=== PATIENT | female | born 1990 | race Caucasian/White ===

== ENCOUNTER → 2016-05-31 | Outpatient (CLI) | payer OTHER ==
--- NOTE | 2016-05-31 07:51 | US ---
EXAMINATION TYPE: US gallbladder DATE OF EXAM: 05/31/2016 7:37 AM COMPARISON: NONE CLINICAL HISTORY: 25-year-old female R14.0 Abdominal distension (gaseous). Abdominal bloating and dis comfort. TECHNIQUE: Multiple sonographic images of the right upper quadrant are obtained. FINDINGS: Liver Length: 13.8 cm Gallbladder Wall: 0.1 cm CBD: 0.4 cm Right Kidney: 9.2 x 3.8 x 4.8 cm Pancreas: Grossly unremarkable. Liver: Normal homogeneous echotexture without focal lesion. Gallbladder: No abnormal gallbladder distention, wall thickening, pericholecystic fluid, or shadowin g calculi. Evidence for sonographic Kaplan's sign: No CBD: Within normal limits. Right Kidney: No hydronephrosis. IMPRESSION: Unremarkable sonographic examination of the right upper quadrant.
== END | disposition home or self-care (01) ==
LOC: RADUSWWP 07:25
PROVIDERS: ATTEND Family Medicine
DX: R14.0 Abdominal distension (gaseous) (principal)
CPT/HCPCS: 76705

== ENCOUNTER 2016-07-27 13:04 | Emergency (ER) | payer OTHER ==
[2016-07-27 13:23] VITALS: BP 107/59; PULSE 94; RESP 18; TEMP 97.1
[2016-07-27] MEDS ORDERED: KETOROLAC 60 MG/2 ML VIAL IM STA (13:28)
[2016-07-27] MEDS ORDERED: diphenhydrAMINE 50 MG CAP PO STA (13:28)
[2016-07-27] MEDS ORDERED: METOCLOPRAMIDE 10 MG TAB PO STA (13:31)
--- NOTE | 2016-07-27 13:48 | ED ---
Headache HPI - General Chief Complaint: Headache Stated Complaint: migraine Time Seen by Provider: 07/27/16 13:24 Source: patient, RN notes reviewed Mode of arrival: ambulatory Limitations: no limitations - History of Present Illness Initial Comments: 25-year-old female presents emergency Department with chief complaint of headache. Patient states started on Sunday with some congestion. She does have seasonal ALLERGY has been taken Claritin for this. Patient denies any nausea, vomiting diarrhea constipation. Denies fever, chills, neck pain or neck stiffness. Patient states that she took some Motrin other day with no relief. She did take Aleve yesterday with with relief of her symptoms with states her return. Patient complains of pressure feeling in her face with diffuse headache. Denies any focal weakness, paresthesias. She states she's never had a headache of this type but states it is not the worse. - Related Data Home Medications Medication Instructions Recorded Confirmed Ibuprofen [Motrin] 200 mg PO Q6HR PRN 07/27/16 07/27/16 Loratadine [Claritin] 10 mg PO DAILY 07/27/16 07/27/16 Naproxen Sodium [Aleve] 220 mg PO DAILY PRN 07/27/16 07/27/16 Previous Rx's Medication Instructions Recorded Ketorolac [Toradol] 10 mg PO Q8HR #15 tab 07/27/16 Allergies Allergy/AdvReac Type Severity Reaction Status Date / Time escitalopram [From Lexapro] AdvReac Rapid Verified 07/27/16 13:52 Heart Rate gluten AdvReac Unknown Verified 07/27/16 13:52 Review of Systems ROS Statement: Those systems with pertinent positive or pertinent negative responses have been documented in the HPI. ROS Other: All systems not noted in ROS Statement are negative. Past Medical History Past Medical History: No Reported History History of Any Multi-Drug Resistant Organisms: None Reported Past Surgical History: Adenoidectomy, Tonsillectomy Additional Past Surgical History / Comment(s): D AND C, THUMB Past Psychological History: No Psychological Hx Reported Smoking Status: Never smoker Past Alcohol Use History: Rare Past Drug Use History: None Reported General Exam Limitations: no limitations General appearance: alert, in no apparent distress Head exam: Present: atraumatic, normocephalic, normal inspection Eye exam: Present: normal appearance, PERRL, EOMI. Absent: scleral icterus, conjunctival injection, periorbital swelling ENT exam: Present: normal exam, normal oropharynx, mucous membranes moist, TM's normal bilaterally, normal external ear exam Neck exam: Present: normal inspection, full ROM. Absent: tenderness, meningismus, lymphadenopathy Respiratory exam: Present: normal lung sounds bilaterally. Absent: respiratory distress, wheezes, rales, rhonchi, stridor Cardiovascular Exam: Present: regular rate, normal rhythm, normal heart sounds. Absent: systolic murmur, diastolic murmur, rubs, gallop, clicks GI/Abdominal exam: Present: soft, normal bowel sounds. Absent: distended, tenderness, guarding, rebound, rigid Neurological exam: Present: alert, oriented X3, CN II-XII intact, reflexes normal, other (Finger to nose intact bilaterally without shooting). Absent: motor sensory deficit Skin exam: Present: warm, dry, intact, normal color. Absent: rash Course Vital Signs 07/27/16 13:20 Temperature 97.1 F L Pulse Rate 94 Respiratory 18 Rate Blood Pressure 107/59 O2 Sat by Pulse 99 Oximetry Medical Decision Making - Medical Decision Making 35-year-old female presented emergency from for headache. Patient's headache has resolved after medications. Patient be discharged at this time return parameters were discussed. Patient has no neurological deficits. Disposition Clinical Impression: Headache Disposition: HOME SELF-CARE Condition: Stable Instructions: Acute Headache (ED) Additional Instructions: Please return to the Emergency Department if symptoms worsen or any other concerns. Prescriptions: Ketorolac [Toradol] 10 mg PO Q8HR #15 tab Time of Disposition: 14:02
== END 2016-07-27 14:00 | disposition home or self-care (01) ==
LOC: EC 13:04
DX: R51 Headache (principal); Z79.899 Other long term (current) drug therapy; Z88.8 Allergy status to other drugs, medicaments and biological substances
CPT/HCPCS: 99283; 96372; J1885

== ENCOUNTER → 2017-07-16 | Outpatient (CLI) | payer OTHER ==
--- NOTE | 2017-07-16 10:12 | MM ---
Reason for exam: clinical finding. Baseline mammogram. History: Family history of breast cancer in paternal grandmother at age 60. Indicated problem(s): pain in the right breast. Physical Findings: Nurse did not find any significant physical abnormalities on exam. MG Diagnostic Mammo w CAD CARLOS Bilateral CC and MLO view(s) were taken. The breast tissue is extremely dense which could obscure a lesion on mammography. There is no discrete abnormality. Very dense tissue. These results were verbally communicated with the patient and result sheet given to the patient on 07/16/17. ASSESSMENT: Incomplete: need additional imaging evaluation, BI-RAD 0 RECOMMENDATION: Ultrasound of the right breast. (at the previously palpable site)
--- NOTE | 2017-07-16 10:26 | USB ---
Reason for exam: additional evaluation requested from abnormal screening. History: Family history of breast cancer in paternal grandmother at age 60. US Breast Limited RT Right breast ultrasound demonstrates no cystic or solid lesion seen. Scanned 6-10 o'clock. Dense tissues are seen. These results were verbally communicated with the patient and result sheet given to the patient on 07/16/17. ASSESSMENT: Negative, BI-RAD 1 RECOMMENDATION: Routine screening mammogram of both breasts at age 38. (unless clinical indication to start sooner) Manage on a clinical basis with regard to any suspicious palpable abnormality. If the palpable area recurs, the area can be rescanned.
== END | disposition home or self-care (01) ==
LOC: RADMAMWWP 08:10
PROVIDERS: ATTEND Family Medicine
DX: N64.4 Mastodynia (principal); N63.10 Unspecified lump in the right breast, unspecified quadrant; R92.8 Other abnormal and inconclusive findings on diagnostic imaging of breast
CPT/HCPCS: 77066

== ENCOUNTER 2017-08-26 15:34 | Emergency (ER) | payer OTHER ==
[2017-08-26 15:46] VITALS: TEMP 97.8
[2017-08-26] MEDS ORDERED: DIPH,PERTUS(ACELL)TETVAC-LF 0.5 ML VIAL IM ONE (16:35)
--- NOTE | 2017-08-26 16:45 | XR ---
EXAMINATION TYPE: XR ankle complete RT DATE OF EXAM: 08/26/2017 COMPARISON: NONE HISTORY: Pain TECHNIQUE: Three-view right ankle FINDINGS: Ankle mortise is intact. Soft tissues are normal. No acute fractures or dislocations are ev ident. IMPRESSION: 1. Normal three-view right ankle
--- NOTE | 2017-08-26 16:51 | ED ---
General Adult HPI - General Chief complaint: Extremity Injury, Lower Stated complaint: ANKLE INJURY Time Seen by Provider: 08/26/17 15:52 Source: patient, RN notes reviewed Mode of arrival: ambulatory Limitations: no limitations - History of Present Illness Initial comments: 26-year-old female since to the emergency department for a chief complaint of right ankle pain times 4 days. Patient states her dog's chain slid across her ankle causing an abrasion 5 days ago. She states it is painful when she keeps her foot dependent. It is not painful at the time of exam when she has it propped up in the bed. Patient is concerned for infection. Patient did not fall or hit her head. Patient did not sustain any other injuries. No fevers or chills at home. Patient has no other complaints at this time including shortness of breath, chest pain, abdominal pain, nausea or vomiting, headache, or visual changes. - Related Data Home Medications Medication Instructions Recorded Confirmed Ibuprofen [Motrin] 200 mg PO Q6HR PRN 07/27/16 08/26/17 Loratadine [Claritin] 10 mg PO DAILY 07/27/16 08/26/17 Naproxen Sodium [Aleve] 220 mg PO DAILY PRN 07/27/16 08/26/17 Previous Rx's Medication Instructions Recorded Ketorolac [Toradol] 10 mg PO Q8HR #15 tab 07/27/16 Cephalexin [Keflex] 500 mg PO Q12HR #14 cap 08/26/17 Allergies Allergy/AdvReac Type Severity Reaction Status Date / Time escitalopram [From Lexapro] AdvReac Rapid Verified 08/26/17 15:46 Heart Rate gluten AdvReac Unknown Verified 08/26/17 15:46 Review of Systems ROS Statement: Those systems with pertinent positive or pertinent negative responses have been documented in the HPI. ROS Other: All systems not noted in ROS Statement are negative. Past Medical History Past Medical History: No Reported History History of Any Multi-Drug Resistant Organisms: None Reported Past Surgical History: Adenoidectomy, Tonsillectomy Additional Past Surgical History / Comment(s): D AND C, AVIS Past Psychological History: Anxiety Smoking Status: Never smoker Past Alcohol Use History: Occasional Past Drug Use History: None Reported General Exam Limitations: no limitations General appearance: alert, in no apparent distress Respiratory exam: Present: normal lung sounds bilaterally. Absent: respiratory distress, wheezes, rales, rhonchi, stridor Cardiovascular Exam: Present: regular rate, normal rhythm, normal heart sounds. Absent: systolic murmur, diastolic murmur, rubs, gallop, clicks Extremities exam: Present: full ROM (Full range of motion of the right ankle including flexion and extension and medial and lateral deviation.), tenderness ( Tenderness to the abrasion. No tenderness on the medial or lateral malleolus. No tenderness in the rest of the foot.), normal capillary refill (Refill less than 2 seconds and pedal pulse 2+.), other (Sensation intact in the left lower extremity. There is a abrasion on the lateral posterior right ankle. It is 0.5 cm in width and extends group home around the ankle. Again, no signs of infection.). Absent: joint swelling (No swelling noted in the ankle or foot. No swelling noted around the abrasion. There are no cellulitic changes or spreading redness. No drainage from the abrasion. No signs of infection currently.), calf tenderness (No calf tenderness. No increased redness swelling or warmth in the right calf.) Course Vital Signs 08/26/17 15:44 Temperature 97.8 F Pulse Rate 90 Respiratory 18 Rate Blood Pressure 121/70 O2 Sat by Pulse 98 Oximetry Medical Decision Making - Medical Decision Making 26-year-old female presents to the emergency department for chief complaint of right ankle pain 4 days. Patient states the dog chain scraped across her ankle. Patient does not think she is up-to-date on tetanus. Patient states it is painful when it is dependent. Patient can walk on it. On exam there is a 0.5 cm in width laceration extending from the lateral ankle to the posterior ankle. No signs of infection. No spreading redness or cellulitic changes. No drainage from the area. It appears like it is healing. No pain in the calf. Patient is concerned for infection. X-ray of the right ankle shows no acute fractures or dislocations evident. Patient will be given Keflex to prevent any infection. She was given a tetanus shot in the emergency department. She will follow-up with primary care in 1-2 days. If she notices any worsening symptoms or signs of infection she will return to the emergency department. Disposition Clinical Impression: Ankle abrasion Disposition: HOME SELF-CARE Condition: Good Instructions: Abrasion (ED) Additional Instructions: Please take antibiotic as directed. Please monitor for any worsening signs of infection. Return to the emergency Department if these occur. Otherwise follow -up with primary care in 1-2 days. Prescriptions: Cephalexin [Keflex] 500 mg PO Q12HR #14 cap Is patient prescribed a controlled substance at d/c from ED?: No Referrals: Alecia Ace DO [Primary Care Provider] - 1-2 days Time of Disposition: 16:58
[2017-08-26 17:12] VITALS: BP 120/71; PULSE 78; RESP 16
== END 2017-08-26 17:10 | disposition home or self-care (01) ==
LOC: EC 15:34
DX: S90.512A Abrasion, left ankle, initial encounter (principal); Z23 Encounter for immunization; Z79.899 Other long term (current) drug therapy; Z88.8 Allergy status to other drugs, medicaments and biological substances; Z91.048 Other nonmedicinal substance allergy status; W22.8XXA Striking against or struck by other objects, initial encounter
CPT/HCPCS: 90471; 90715; 99283

== ENCOUNTER → 2018-10-01 | Outpatient (CLI) | payer BC ==
--- NOTE | 2018-10-01 14:49 | MM ---
Reason for exam: clinical finding. Last mammogram was performed 1 year and 3 months ago. History: Family history of breast cancer in paternal grandmother at age 60. Physical Findings: Nurse Summary: 1cm nodule in the left breast at 12-1 o'clock (nurse kp). MG Diagnostic Mammo LT w CAD CC and MLO view(s) were taken of the left breast. Prior study comparison: July 16, 2017, bilateral MG diagnostic mammo w CAD CARLOS. The breast tissue is extremely dense which could obscure a lesion on mammography. These results were verbally communicated with the patient and result sheet given to the patient on 10/01/18. ASSESSMENT: Incomplete: need additional imaging evaluation, BI-RAD 0 RECOMMENDATION: Ultrasound of the left breast.
--- NOTE | 2018-10-01 14:50 | USB ---
Reason for exam: additional evaluation requested from abnormal screening. History: Family history of breast cancer in paternal grandmother at age 60. US Breast Limited LT Left limited breast ultrasound including focal area of concern, retroareolar and axilla demonstrates a 1.0 x 0.7 x 0.8cm cystic cluster at the posterior nipple. These results were verbally communicated with the patient and result sheet given to the patient on 10/01/18. ASSESSMENT: Probably benign, BI-RAD 3 RECOMMENDATION: Ultrasound of the left breast in 6 months.
== END | disposition home or self-care (01) ==
LOC: RADMAMWWP 13:40
PROVIDERS: ATTEND Family Medicine
DX: N63.20 Unspecified lump in the left breast, unspecified quadrant (principal); R92.8 Other abnormal and inconclusive findings on diagnostic imaging of breast
CPT/HCPCS: 77065

== ENCOUNTER 2018-12-30 12:08 | Emergency (ER) | payer BC, OTHER ==
[2018-12-30] MEDS ORDERED: LORazepam 1 MG TAB PO STA (12:39)
--- NOTE | 2018-12-30 12:41 | ED ---
General Adult HPI - General Chief complaint: Psychiatric Symptoms Stated complaint: anxiety Time Seen by Provider: 12/30/18 12:25 Source: patient, RN notes reviewed Mode of arrival: ambulatory Limitations: no limitations - History of Present Illness Initial comments: This is a 28-year-old female who presents emergency Department with a past medical history significant for anxiety and panic attacks. Patient states while at work eating lunch she started to have a bit of a panic attack and felt her heart racing and thought it was difficult to breathe. Patient states normally she'll work and walk home and that can sometimes relieve her symptoms. Patient states she did that but she continued to be very panicky so she try to get to her doctor's office they were unable to see her so she came to the emergency department. Patient denies any chest pain. Patient denies any fever chills or cough. Patient states since being in the ER she does feel little better but she still feels slightly on edge. Patient denies any headache patient denies numbness weakness. Patient denies nausea vomiting diarrhea. Patient denies any injury or trauma. Patient states she's had a tubal ligation so she is not . Patient denies any drug use. Patient states she did have 2 glasses of wine last evening. - Related Data Previous Rx's Medication Instructions Recorded LORazepam [Ativan] 1 mg PO BID 3 Days #3 tab 12/30/18 Allergies Allergy/AdvReac Type Severity Reaction Status Date / Time escitalopram [From Lexapro] AdvReac Rapid Verified 12/30/18 13:00 Heart Rate gluten AdvReac bloating Verified 12/30/18 13:00 Review of Systems ROS Statement: Those systems with pertinent positive or pertinent negative responses have been documented in the HPI. ROS Other: All systems not noted in ROS Statement are negative. Past Medical History Past Medical History: No Reported History History of Any Multi-Drug Resistant Organisms: None Reported Past Surgical History: Adenoidectomy, Tonsillectomy Additional Past Surgical History / Comment(s): D AND C, THUMB Past Psychological History: Anxiety Smoking Status: Never smoker Past Alcohol Use History: Occasional Past Drug Use History: None Reported General Exam - General Exam Comments Initial Comments: GENERAL: Patient is well-developed and well-nourished. Patient is nontoxic and well- hydrated and is in mild distress. ENT: Neck is soft and supple. No significant lymphadenopathy is noted. Oropharynx is clear. Moist mucous membranes. Neck has full range of motion without eliciting any pain. EYES: The sclera were anicteric and conjunctiva were pink and moist. Extraocular movements were intact and pupils were equal round and reactive to light. Eyel ids were unremarkable. PULMONARY: Unlabored respirations. Good breath sounds bilaterally. No audible rales rhonchi or wheezing was noted. CARDIOVASCULAR: There is a regular rate and rhythm without any murmurs gallops or rubs. ABDOMEN: Soft and nontender with normal bowel sounds. SKIN: Skin is clear with no lesions or rashes and otherwise unremarkable. NEUROLOGIC: Patient is alert and oriented x3. Cranial nerves II through XII are grossly intact. Motor and sensory are also intact. Normal speech, volume and content. Symmetrical smile. MUSCULOSKELETAL: Normal extremities with adequate strength and full range of motion. No lower extremity swelling or edema. No calf tenderness. LYMPHATICS: No significant lymphadenopathy is noted PSYCHIATRIC: Patient is mildly anxious. Limitations: no limitations Course Vital Signs 12/30/18 12:24 Temperature 98.7 F Pulse Rate 91 Respiratory 16 Rate Blood Pressure 122/68 O2 Sat by Pulse 100 Oximetry Medical Decision Making - Medical Decision Making I will back into reevaluate the patient after Ativan was given. Patient states she feels considerably better. EKG shows normal sinus rhythm 87 bpm VA interval is on a 46 QRS is 90 QT interval 360 QTC is 442 per patient's EKG shows no ST segment elevation or depression no T-wave abnormalities are noted. Disposition Clinical Impression: Acute anxiety Disposition: HOME SELF-CARE Condition: Good Prescriptions: LORazepam [Ativan] 1 mg PO BID 3 Days #3 tab Is patient prescribed a controlled substance at d/c from ED?: Yes When asked, does pt state using other controlled substances?: No If prescribed controlled substance>3 days was MAPS reviewed?: Prescribed <3 Days Referrals: Alecia Ace DO [Primary Care Provider] - 1-2 days Time of Disposition: 13:56
[2018-12-30 14:12] VITALS: BP 124/78; PULSE 90; RESP 18; TEMP 98
== END 2018-12-30 14:12 | disposition home or self-care (01) ==
LOC: EC 12:08
DX: F41.9 Anxiety disorder, unspecified (principal); Z88.8 Allergy status to other drugs, medicaments and biological substances; Z91.018 Allergy to other foods
CPT/HCPCS: 93005; 99283

== ENCOUNTER → 2019-03-20 | Outpatient (CLI) | payer BC ==
--- NOTE | 2019-03-20 11:05 | USB ---
Reason for exam: follow-up at short interval from prior study. History: Family history of breast cancer in paternal grandmother at age 60. Physical Findings: Nurse Summary: Patient complains of left breast lump since September with intermittent pain, nodular cystic cluster (nurse mj). US Breast Limited LT Technologist: Ioana Jurado Left limited breast ultrasound including focal area of concern, retroareolar and axilla demonstrates a 0.5 x 0.3 x 0.3cm cystic lesion at 6 o'clock, prior 1.0 x 0.7 x 0.8cm, now smaller in size and less complicated. These results were verbally communicated with the patient and result sheet given to the patient on 03/20/19. ASSESSMENT: Benign, BI-RAD 2 RECOMMENDATION: Routine screening mammogram of both breasts at age 38. (or sooner if clinically indicated)
== END | disposition home or self-care (01) ==
LOC: RADUSWWP 06:58
PROVIDERS: ATTEND Family Medicine
DX: R92.8 Other abnormal and inconclusive findings on diagnostic imaging of breast (principal)

== ENCOUNTER 2019-04-24 09:09 | Emergency (ER) | payer BC ==
[2019-04-24 09:13] VITALS: RESP 20; TEMP 98.7
[2019-04-24] MEDS ORDERED: IOPAMIDOL CONTRAST (ORAL USE) VIAL PO PRN (09:59)
[2019-04-24] MEDS ORDERED: ONDANSETRON 4 MG/2 ML VIAL IVP STA (10:00)
[2019-04-24 10:19] LABS: Basophils % (A) 1 %; Eosinophils # (A) 0.1 k/uL (0-0.7); Eosinophils % (A) 2 %; HCT 41.7 % (34.0-46.0); HGB 13.8 gm/dL (11.4-16.0); Lymphocytes # (A) 1.3 k/uL (1.0-4.8); Lymphocytes % (A) 19 %; MCH 30.8 pg (25.0-35.0); MCV 93.4 fL (80.0-100.0); Mean Platelet Volume 7.3; Monocytes # (A) 0.4 k/uL (0-1.0); Monocytes % (A) 6 %; Neutrophils # (A) 4.6 k/uL (1.3-7.7); Neutrophils % (A) 69 %; Platelet Count 255 k/uL (150-450); RBC 4.47 m/uL (3.80-5.40); RDW 12.2 % (11.5-15.5); WBC 6.7 k/uL (3.8-10.6)
[2019-04-24 10:23] LABS: Appearance,Urine Cloudy (Clear); Bacteria,Urine Rare /hpf; Bilirubin,Urine Negative (Negative); Blood,Urine Trace (Negative); Color,Urine Yellow; Glucose,Urine (UA) Negative (Negative); Ketones,Urine 2+ (Negative); Leukocyte Esterase,Urine Trace (Negative); Mucus,Urine Many /hpf; Nitrite,Urine Negative (Negative); PH, Urine 5.5 (5.0-8.0); Protein,Urine Trace (Negative); RBC,Urine 1 /hpf (0-5); Specific Gravity,Urine 1.023 (1.001-1.035); Squamous Epithelial Cell,Urine 7 /hpf (0-4); Urobilinogen,Urine <2.0 mg/dL (<2.0); WBC,Urine 4 /hpf (0-5)
[2019-04-24 10:36] LABS: ALT 24 U/L (4-34); AST 30 U/L (14-36); African American GFR (CKD) >90 (>60 ml/min/1.73 sqM); Albumin 4.4 g/dL (3.5-5.0); Alkaline Phosphatase 57 U/L (38-126); Amylase 68 U/L (30-110); Anion Gap 9 mmol/L; Blood Urea Nitrogen 7 mg/dL (7-17); Calcium 9.7 mg/dL (8.4-10.2); Carbon Dioxide 21 mmol/L (22-30); Chloride 108 mmol/L (98-107); Glucose 92 mg/dL (74-99); Non-African American GFR(CKD) >90 (>60 ml/min/1.73 sqM); Potassium 4.2 mmol/L (3.5-5.1); Sodium 138 mmol/L (137-145); Total Bilirubin 0.8 mg/dL (0.2-1.3); Total Protein 7.2 g/dL (6.3-8.2)
--- NOTE | 2019-04-24 12:00 | CT ---
EXAMINATION TYPE: CT abdomen pelvis w con DATE OF EXAM: 04/24/2019 COMPARISON: None HISTORY: Pelvic pain with nausea and diarrhea. CT DLP: 469 mGycm CONTRAST: CT scan of the abdomen and pelvis is performed with Oral Contrast and with IV Contrast, patient injec willard with 100 mL of Isovue 300. FINDINGS: LUNG BASES-: No visible nodule. No infiltrate. LIVER/GB: No calcified gallstones. No space occupying hepatic lesion. Biliary tree is of normal ca liber. PANCREAS: No inflammation. No distinct mass. SPLEEN: No splenic enlargement. No lesion seen. ADRENALS: No nodule. No thickening. KIDNEYS/BLADDER: No hydronephrosis. No nephrolithiasis. No distinct renal mass. Urinary bladder g rossly unremarkable. BOWEL: The appendix is not clearly visualized. No inflammatory process right lower quadrant is noted however. Normal bowel caliber. No inflammation. GENITAL ORGANS: Small amount of fluid adjacent to the right adnexa. Suspect a small ovarian cyst kwadwo suring 1.3 cm. LYMPH NODES: No greater than 1cm abdominal or pelvic lymph nodes are appreciated. AORTA: No significant abnormality. OSSEOUS STRUCTURES: No significant abnormality is seen. OTHER: No significant additional abnormality is seen. IMPRESSION: 1. The appendix is not clearly visualized. No inflammatory process right lower quadrant is noted macias jim. 2.Small amount of fluid adjacent to the right adnexa. Suspect a small ovarian cyst measuring 1.3 cm.
--- NOTE | 2019-04-24 12:58 | US ---
EXAMINATION TYPE: US transvaginal DATE OF EXAM: 04/24/2019 COMPARISON: NONE CLINICAL HISTORY: RLQ pain. RLQ pain, nausea, tubal ligation, history of 2 D&C's TECHNIQUE: Transvaginal (TV). Date of LMP: 04/17/19 EXAM MEASUREMENTS: Uterus: 7.8 x 3.8 x 5.0 cm Endometrial Stripe: 0.6 cm Right Ovary: 4.1 x 2.1 x 2.0 cm Left Ovary: 2.6 x 1.3 x 1.4 cm 1. Uterus: Anteverted nabothian cysts noted within the cervix. 2. Endometrium: appears wnl 3. Right Ovary: dominant follicle = 2.1 x 1.4 x 2.0cm 4. Left Ovary: follicles noted Spectral, color and waveform doppler imaging shows arterial and venous flow within the ovaries; the re is no evidence for ovarian torsion. 5. Bilateral Adnexa: appears wnl 6. Posterior cul-de-sac: free fluid noted IMPRESSION: There is a right ovarian cyst. Free fluid in the pelvis.
--- NOTE | 2019-04-24 13:01 | ED ---
Abdominal Pain HPI - General Chief Complaint: Abdominal Pain Stated Complaint: abd pain Time Seen by Provider: 04/24/19 09:29 Source: patient Mode of arrival: ambulatory Limitations: no limitations - History of Present Illness Initial Comments: 28-year-old female presenting today for chief complaint of right lower quadrant abdominal pain history of ovarian cysts. Patient states she has had abdominal pain for the past 2 days. Patient states it feels slightly different from her typical ovarian cyst pain. Patient denies any vaginal bleeding discharge dysuria urgency frequency hematuria flank pain. Patient states that she is concerned about appendicitis she denies fevers. She states she has had some slight diarrhea denies vomiting melena hematochezia. Patient denies . Patient states she's had nausea but no vomiting. Remaining review of systems negative upon arrival patient appears well no signs of acute distress - Related Data Previous Rx's Medication Instructions Recorded LORazepam [Ativan] 1 mg PO BID 3 Days #3 tab 12/30/18 Allergies Allergy/AdvReac Type Severity Reaction Status Date / Time escitalopram [From Lexapro] AdvReac Rapid Verified 04/24/19 09:13 Heart Rate gluten AdvReac bloating Verified 04/24/19 09:13 Review of Systems ROS Statement: Those systems with pertinent positive or pertinent negative responses have been documented in the HPI. ROS Other: All systems not noted in ROS Statement are negative. Past Medical History Past Medical History: No Reported History History of Any Multi-Drug Resistant Organisms: None Reported Past Surgical History: Adenoidectomy, Tonsillectomy Additional Past Surgical History / Comment(s): D AND C, THUMB Past Psychological History: Anxiety Smoking Status: Never smoker Past Alcohol Use History: Occasional Past Drug Use History: None Reported General Exam - General Exam Comments Initial Comments: General: The patient is awake and alert, in no distress Eye: +3 mm pupils are equal, round and reactive to light, extra-ocular movements are intact. No nystagmus. There is normal conjunctiva bilaterally. No signs of icterus. Ears, nose, mouth and throat: There are moist mucous membranes and no oral lesions. Neck: The neck is supple, there is no tenderness or JVD. Cardiovascular: There is a regular rate and rhythm. No murmur, rub or gallop is appreciated. Respiratory: Lungs are clear to auscultation, respirations are non-labored, breath sounds are equal. No wheezes, stridor, rales, or rhonchi. Gastrointestinal: Soft, non-distended, tender to the RLQ, no LLQ or upper abdominal pain, abdomen without masses or organomegaly noted. There is no rebound or guarding present. No CVA tenderness. Musculoskeletal: Normal ROM, no tenderness. Strength 5/5. Sensation intact. Radial pulses equal bilaterally 2+. Neurological: A&O x 3. CN II-XII intact grossly, There are no obvious motor or sensory deficits. Coordination appears grossly intact. Speech is normal. Skin: Skin is warm and dry and no rashes or lesions are noted. Psychiatric: Cooperative, appropriate mood & affect, normal judgment. Limitations: no limitations Course Vital Signs 04/24/19 04/24/19 04/24/19 09:10 09:13 10:13 Temperature 98.7 F Pulse Rate 86 87 Respiratory 20 20 20 Rate Blood Pressure 108/63 108/65 O2 Sat by Pulse 100 100 Oximetry 04/24/19 04/24/19 04/24/19 11:13 12:00 13:00 Temperature Pulse Rate 86 89 85 Respiratory 20 20 20 Rate Blood Pressure 108/66 107/74 103/63 O2 Sat by Pulse 100 100 100 Oximetry 04/24/19 13:14 Temperature Pulse Rate Respiratory 20 Rate Blood Pressure O2 Sat by Pulse Oximetry Medical Decision Making - Medical Decision Making 28-year-old female presenting for right lower quadrant abdominal pain CT findings are consistent possible recently ruptured ovarian cyst with a 1.3 cm cyst and free fluid in the pelvis. Although the appendix is not seen in all entirety there is no severe signs of appendicitis or inflammation. Patient has no leukocytosis, nor fevers. Patient has US to r/p torsion although patient did not appear very tender or in significant discomfort, pre-test probabilty felt to be low. US (-) for torsion. Ovarian cyst wtih free fluid present. HCG (-). Otherwise labs no significant abnormalities. At this time I feel patient is stable for discharge with PCP and OBGYN f/u. Patient is agreeable to this care plan. I discussed case with Dr. Killian who is agreeable to this care plan and discharge at this time. - Lab Data Result diagrams: 04/24/19 10:06 04/24/19 10:06 Lab Results 04/24/19 04/24/19 04/24/19 Range/Units 10:06 10:06 10:06 WBC 6.7 (3.8-10.6) k/uL RBC 4.47 (3.80-5.40) m/uL Hgb 13.8 (11.4-16.0) gm/dL Hct 41.7 (34.0-46.0) % MCV 93.4 (80.0-100.0) fL MCH 30.8 (25.0-35.0) pg MCHC 33.0 (31.0-37.0) g/dL RDW 12.2 (11.5-15.5) % Plt Count 255 (150-450) k/uL Neutrophils % 69 % Lymphocytes % 19 % Monocytes % 6 % Eosinophils % 2 % Basophils % 1 % Neutrophils # 4.6 (1.3-7.7) k/uL Lymphocytes # 1.3 (1.0-4.8) k/uL Monocytes # 0.4 (0-1.0) k/uL Eosinophils # 0.1 (0-0.7) k/uL Basophils # 0.0 (0-0.2) k/uL Sodium 138 (137-145) mmol/L Potassium 4.2 (3.5-5.1) mmol/L Chloride 108 H (98-107) mmol/L Carbon Dioxide 21 L (22-30) mmol/L Anion Gap 9 mmol/L BUN 7 (7-17) mg/dL Creatinine 0.56 (0.52-1.04) mg/dL Est GFR (CKD-EPI)AfAm >90 (>60 ml/min/1.73 sqM) Est GFR (CKD-EPI)NonAf >90 (>60 ml/min/1.73 sqM) Glucose 92 (74-99) mg/dL Calcium 9.7 (8.4-10.2) mg/dL Total Bilirubin 0.8 (0.2-1.3) mg/dL AST 30 (14-36) U/L ALT 24 (4-34) U/L Alkaline Phosphatase 57 (38-126) U/L Total Protein 7.2 (6.3-8.2) g/dL Albumin 4.4 (3.5-5.0) g/dL Amylase 68 (30-110) U/L Lipase 83 (23-300) U/L Urine Color Urine Appearance (Clear) Urine pH (5.0-8.0) Ur Specific [place] (1.001-1.035) Urine Protein (Negative) Urine Glucose (UA) (Negative) Urine Ketones (Negative) Urine Blood (Negative) Urine Nitrite (Negative) Urine Bilirubin (Negative) Urine Urobilinogen (<2.0) mg/dL Ur Leukocyte Esterase (Negative) Urine RBC (0-5) /hpf Urine WBC (0-5) /hpf Ur Squamous Epith Cells (0-4) /hpf Urine Bacteria (None) /hpf Urine Mucus (None) /hpf Urine HCG, Qual Not Detected (Not Detectd) 04/24/19 Range/Units 10:06 WBC (3.8-10.6) k/uL RBC (3.80-5.40) m/uL Hgb (11.4-16.0) gm/dL Hct (34.0-46.0) % MCV (80.0-100.0) fL MCH (25.0-35.0) pg MCHC (31.0-37.0) g/dL RDW (11.5-15.5) % Plt Count (150-450) k/uL Neutrophils % % Lymphocytes % % Monocytes % % Eosinophils % % Basophils % % Neutrophils # (1.3-7.7) k/uL Lymphocytes # (1.0-4.8) k/uL Monocytes # (0-1.0) k/uL Eosinophils # (0-0.7) k/uL Basophils # (0-0.2) k/uL Sodium (137-145) mmol/L Potassium (3.5-5.1) mmol/L Chloride (98-107) mmol/L Carbon Dioxide (22-30) mmol/L Anion Gap mmol/L BUN (7-17) mg/dL Creatinine (0.52-1.04) mg/dL Est GFR (CKD-EPI)AfAm (>60 ml/min/1.73 sqM) Est GFR (CKD-EPI)NonAf (>60 ml/min/1.73 sqM) Glucose (74-99) mg/dL Calcium (8.4-10.2) mg/dL Total Bilirubin (0.2-1.3) mg/dL AST (14-36) U/L ALT (4-34) U/L Alkaline Phosphatase (38-126) U/L Total Protein (6.3-8.2) g/dL Albumin (3.5-5.0) g/dL Amylase (30-110) U/L Lipase (23-300) U/L Urine Color Yellow Urine Appearance Cloudy H (Clear) Urine pH 5.5 (5.0-8.0) Ur Specific [place] 1.023 (1.001-1.035) Urine Protein Trace H (Negative) Urine Glucose (UA) Negative (Negative) Urine Ketones 2+ H (Negative) Urine Blood Trace H (Negative) Urine Nitrite Negative (Negative) Urine Bilirubin Negative (Negative) Urine Urobilinogen <2.0 (<2.0) mg/dL Ur Leukocyte Esterase Trace H (Negative) Urine RBC 1 (0-5) /hpf Urine WBC 4 (0-5) /hpf Ur Squamous Epith Cells 7 H (0-4) /hpf Urine Bacteria Rare H (None) /hpf Urine Mucus Many H (None) /hpf Urine HCG, Qual (Not Detectd) Disposition Clinical Impression: Right ovarian cyst Disposition: HOME SELF-CARE Condition: Good Instructions (If sedation given, give patient instructions): Ruptured Ovarian Cyst (ED) Additional Instructions: Please use medication as discussed. Please follow-up with family doctor in the next 2 days, OBGYN in next week Please return to emergency room if the symptoms increase or worsen or for any other concerns. Is patient prescribed a controlled substance at d/c from ED?: No Referrals: Alecia Ace DO [Primary Care Provider] - 1-2 days Nora Perry MD [STAFF PHYSICIAN] - 1-2 days Time of Disposition: 13:01
[2019-04-24 13:14] VITALS: BP 103/63; PULSE 85
== END 2019-04-24 13:19 | disposition home or self-care (01) ==
LOC: EC 09:09
DX: N83.201 Unspecified ovarian cyst, right side (principal); Z91.048 Other nonmedicinal substance allergy status; Z88.8 Allergy status to other drugs, medicaments and biological substances
CPT/HCPCS: 36415; 80053; 82150; 83690; 85025; 81001; 81025; 93975; 76830; 74177; 99284; 96374; J2405; Q9967

== ENCOUNTER 2021-08-22 08:43 | Emergency (ER) | payer BC ==
[2021-08-22 09:33] VITALS: TEMP 97.7
[2021-08-22] MEDS ORDERED: SODIUM CHLORIDE 0.9% 1,000 ML IV STA (09:58)
--- NOTE | 2021-08-22 10:05 | ED ---
General Adult HPI - General Chief complaint: Dizziness Stated complaint: walking issues, dizziness Time Seen by Provider: 08/22/21 09:50 Source: patient, RN notes reviewed, old records reviewed Mode of arrival: ambulatory Limitations: no limitations - History of Present Illness Initial comments: 30-year-old female presents to the emergency room with complaints of intermittent dizziness since May. She has had problems with dizziness in the past and was told it was likely vertigo and prescribed Antivert but she did not take it today. Patient states that today she had to sit down and felt off balance with a hard time walking lasting about 6 seconds. She denies any fevers, no nausea, vomiting or diarrhea. She denies any pain at this time. No headaches, no focal neurological deficits. -: month(s) (1) Severity scale (1-10): 0 Consistency: intermittent Associated Symptoms: other (dizziness) Treatments Prior to Arrival: none - Related Data Home Medications Medication Instructions Recorded Confirmed Levothyroxine Sodium [Synthroid] 50 mcg PO DAILY 08/22/21 08/22/21 Allergies Allergy/AdvReac Type Severity Reaction Status Date / Time escitalopram [From Lexapro] AdvReac Rapid Verified 08/22/21 08:47 Heart Rate gluten AdvReac Bloating/Abdominal Verified 08/22/21 10:33 Pain/Nausea Review of Systems ROS Statement: Those systems with pertinent positive or pertinent negative responses have been documented in the HPI. ROS Other: All systems not noted in ROS Statement are negative. Past Medical History Past Medical History: No Reported History History of Any Multi-Drug Resistant Organisms: None Reported Past Surgical History: Adenoidectomy, Tonsillectomy Additional Past Surgical History / Comment(s): AVIS MAGALLANES Past Psychological History: Anxiety Smoking Status: Never smoker Past Alcohol Use History: Rare Past Drug Use History: None Reported General Exam Limitations: no limitations General appearance: alert, in no apparent distress Head exam: Present: atraumatic, normocephalic Eye exam: Present: normal appearance. Absent: scleral icterus, conjunctival injection ENT exam: Present: normal exam, normal oropharynx, mucous membranes moist Neck exam: Present: normal inspection, full ROM. Absent: tenderness, meningismus, lymphadenopathy, thyromegaly Respiratory exam: Present: normal lung sounds bilaterally. Absent: respiratory distress, accessory muscle use Cardiovascular Exam: Present: regular rate, normal rhythm, normal heart sounds GI/Abdominal exam: Present: soft. Absent: distended, tenderness Neurological exam: Present: alert, oriented X3, CN II-XII intact Expanded Patient oriented to: Present: person, place, time Speech: Present: fluid speech Cerebellar function: Heel to [place]: Normal Motor strength exam: RUE: 5, LUE: 5, RLE: 5, LLE: 5 Eye Response: (4) open spontaneously Motor Response: (6) obeys commands Verbal Response: (5) oriented Elizabeth Total: 15 Psychiatric exam: Present: normal affect, normal mood Skin exam: Present: warm, dry, intact, normal color. Absent: cyanosis, diaphoretic Course Vital Signs 08/22/21 08/22/21 08:44 09:33 Temperature 97.7 F Pulse Rate 104 H Respiratory 22 Rate Blood Pressure 108/68 O2 Sat by Pulse 100 Oximetry EKG Findings - EKG Results: EKG: sinus rhythm (Ventricular rate of 86, FL interval 0.158, QRS 0.99, QTC 0 .408) Medical Decision Making - Medical Decision Making At this time patient has no dizziness. She has no pain, no headaches, no focal neurological deficits. Vital signs are stable and patient is well-appearing. EKG and labs are within normal limits. She has had this dizziness in the past and has Antivert at home which she did not take today. She was offered Antivert at this time and declined. Patient does have a primary care doctor tomorrow. She was directed to return to the emergency room with any new or concerning symptoms. She is agreeable to this plan of care. - Lab Data Result diagrams: 08/22/21 10:36 08/22/21 10:36 Lab Results 08/22/21 08/22/21 08/22/21 Range/Units 10:36 10:36 10:36 WBC 8.1 (3.8-10.6) k/uL RBC 4.57 (3.80-5.40) m/uL Hgb 13.9 (11.4-16.0) gm/dL Hct 43.4 (34.0-46.0) % MCV 95.0 (80.0-100.0) fL MCH 30.4 (25.0-35.0) pg MCHC 32.0 (31.0-37.0) g/dL RDW 12.2 (11.5-15.5) % Plt Count 265 (150-450) k/uL MPV 7.3 Neutrophils % 76 % Lymphocytes % 16 % Monocytes % 4 % Eosinophils % 2 % Basophils % 1 % Neutrophils # 6.1 (1.3-7.7) k/uL Lymphocytes # 1.3 (1.0-4.8) k/uL Monocytes # 0.4 (0-1.0) k/uL Eosinophils # 0.1 (0-0.7) k/uL Basophils # 0.1 (0-0.2) k/uL PT 10.4 (9.0-12.0) sec INR 1.0 (<1.2) Sodium (137-145) mmol/L Potassium (3.5-5.1) mmol/L Chloride (98-107) mmol/L Carbon Dioxide (22-30) mmol/L Anion Gap mmol/L BUN (7-17) mg/dL Creatinine (0.52-1.04) mg/dL Est GFR (CKD-EPI)AfAm (>60 ml/min/1.73 sqM) Est GFR (CKD-EPI)NonAf (>60 ml/min/1.73 sqM) Glucose (74-99) mg/dL Calcium (8.4-10.2) mg/dL Urine Color Light Yellow Urine Appearance Clear (Clear) Urine pH 5.5 (5.0-8.0) Ur Specific [place] 1.004 (1.001-1.035) Urine Protein Negative (Negative) Urine Glucose (UA) Negative (Negative) Urine Ketones Negative (Negative) Urine Blood Negative (Negative) Urine Nitrite Negative (Negative) Urine Bilirubin Negative (Negative) Urine Urobilinogen <2.0 (<2.0) mg/dL Ur Leukocyte Esterase Negative (Negative) Urine HCG, Qual (Not Detectd) 08/22/21 08/22/21 Range/Units 10:36 10:36 WBC (3.8-10.6) k/uL RBC (3.80-5.40) m/uL Hgb (11.4-16.0) gm/dL Hct (34.0-46.0) % MCV (80.0-100.0) fL MCH (25.0-35.0) pg MCHC (31.0-37.0) g/dL RDW (11.5-15.5) % Plt Count (150-450) k/uL MPV Neutrophils % % Lymphocytes % % Monocytes % % Eosinophils % % Basophils % % Neutrophils # (1.3-7.7) k/uL Lymphocytes # (1.0-4.8) k/uL Monocytes # (0-1.0) k/uL Eosinophils # (0-0.7) k/uL Basophils # (0-0.2) k/uL PT (9.0-12.0) sec INR (<1.2) Sodium 140 (137-145) mmol/L Potassium 4.3 (3.5-5.1) mmol/L Chloride 107 (98-107) mmol/L Carbon Dioxide 28 (22-30) mmol/L Anion Gap 5 mmol/L BUN 7 (7-17) mg/dL Creatinine 0.64 (0.52-1.04) mg/dL Est GFR (CKD-EPI)AfAm >90 (>60 ml/min/1.73 sqM) Est GFR (CKD-EPI)NonAf >90 (>60 ml/min/1.73 sqM) Glucose 92 (74-99) mg/dL Calcium 9.5 (8.4-10.2) mg/dL Urine Color Urine Appearance (Clear) Urine pH (5.0-8.0) Ur Specific [place] (1.001-1.035) Urine Protein (Negative) Urine Glucose (UA) (Negative) Urine Ketones (Negative) Urine Blood (Negative) Urine Nitrite (Negative) Urine Bilirubin (Negative) Urine Urobilinogen (<2.0) mg/dL Ur Leukocyte Esterase (Negative) Urine HCG, Qual Not Detected (Not Detectd) Disposition Clinical Impression: Dizziness Disposition: HOME SELF-CARE Condition: Good Instructions (If sedation given, give patient instructions): Dizziness (ED) Additional Instructions: Take Antivert as previously prescribed for any dizziness. Do not drive or operate machinery while having dizziness. Follow-up with the primary care doctor as scheduled tomorrow. Return to the emergency room with any new or concerning symptoms. Is patient prescribed a controlled substance at d/c from ED?: No Referrals: Alecia Ace DO [Primary Care Provider] - 1-2 days Time of Disposition: 11:31
[2021-08-22 10:58] LABS: Basophils # (A) 0.1 k/uL (0-0.2); Basophils % (A) 1 %; Eosinophils # (A) 0.1 k/uL (0-0.7); Eosinophils % (A) 2 %; HCT 43.4 % (34.0-46.0); HGB 13.9 gm/dL (11.4-16.0); Lymphocytes # (A) 1.3 k/uL (1.0-4.8); Lymphocytes % (A) 16 %; MCH 30.4 pg (25.0-35.0); Mean Platelet Volume 7.3; Monocytes # (A) 0.4 k/uL (0-1.0); Monocytes % (A) 4 %; Neutrophils # (A) 6.1 k/uL (1.3-7.7); Neutrophils % (A) 76 %; Platelet Count 265 k/uL (150-450); RBC 4.57 m/uL (3.80-5.40); RDW 12.2 % (11.5-15.5); WBC 8.1 k/uL (3.8-10.6)
[2021-08-22 10:59] LABS: Appearance,Urine Clear (Clear); Bilirubin,Urine Negative (Negative); Blood,Urine Negative (Negative); Color,Urine Light Yellow; Glucose,Urine (UA) Negative (Negative); Ketones,Urine Negative (Negative); Leukocyte Esterase,Urine Negative (Negative); Nitrite,Urine Negative (Negative); PH, Urine 5.5 (5.0-8.0); Protein,Urine Negative (Negative); Specific Gravity,Urine 1.004 (1.001-1.035); Urobilinogen,Urine <2.0 mg/dL (<2.0)
[2021-08-22 11:11] LABS: African American GFR (CKD) >90 (>60 ml/min/1.73 sqM); Anion Gap 5 mmol/L; Blood Urea Nitrogen 7 mg/dL (7-17); Calcium 9.5 mg/dL (8.4-10.2); Carbon Dioxide 28 mmol/L (22-30); Chloride 107 mmol/L (98-107); Glucose 92 mg/dL (74-99); Non-African American GFR(CKD) >90 (>60 ml/min/1.73 sqM); Potassium 4.3 mmol/L (3.5-5.1); Sodium 140 mmol/L (137-145)
[2021-08-22 11:15] LABS: Prothrombin Time 10.4 sec (9.0-12.0)
[2021-08-22 12:02] VITALS: BP 106/57; PULSE 74; RESP 16
== END 2021-08-22 12:00 | disposition home or self-care (01) ==
LOC: EC 08:43
DX: R42 Dizziness and giddiness (principal)
CPT/HCPCS: 36415; 80048; 81003; 81025; 85025; 85610; 93005; 99284

== ENCOUNTER → 2022-06-14 | Outpatient (CLI) | payer BC ==
--- NOTE | 2022-06-15 07:30 | MR ---
EXAMINATION TYPE: MR brain wo/w con DATE OF EXAM: 06/14/2022 COMPARISON: NONE HISTORY: Ringing in ears, vertigo. TECHNIQUE: Multiplanar, multisequence images of the brain and brainstem is performed without and with IV contras t, utilizing 5 mL intravenous Gadavist . FINDINGS: Diffusion weighted images demonstrate no evidence of a recent infarct or other diffusion ab normality. The ventricular system and cisternal spaces are normal in size and appearance. The brain volume is age appropriate. There is occasional tiny focus of T2 hyperintensity seen throughout the wh ite matter bilaterally. Approximately 3-4 scattered lesions are seen. Lesions are nonspecific in appe arance and distribution. Midline structures demonstrate normal morphology. The craniocervical junction appears within normal limits. Post contrast images demonstrate no abnormal enhancement. The dural venous sinuses appear pa tent. Mild mucosal thickening right ethmoid sinuses otherwise paranasal sinuses are clear. Globes are intact bilaterally. No increased fluid signal in the bilateral mastoid air cells. IMPRESSION: Minimal nonspecific white matter changes. No abnormal enhancement. Mild right-sided chron ic ethmoid sinusitis. No suspicious findings seen to account for patient's symptoms.
== END | disposition home or self-care (01) ==
LOC: RADMRIMAIN 19:16
PROVIDERS: ATTEND Physician Assistant
DX: J32.2 Chronic ethmoidal sinusitis (principal); H93.13 Tinnitus, bilateral; R90.82 White matter disease, unspecified; Z84.89 Family history of other specified conditions
CPT/HCPCS: 70553; A9585

== ENCOUNTER 2022-06-22 10:50 | Emergency (ER) | payer BC ==
[2022-06-22 11:35] VITALS: RESP 18
[2022-06-22] MEDS ORDERED: ACETAMINOPHEN TAB 325 MG TAB PO STA (11:52)
--- NOTE | 2022-06-22 12:20 | ED ---
General Adult HPI - General Chief complaint: Upper Respiratory Infection Stated complaint: Lower Abd Pain Time Seen by Provider: 06/22/22 11:39 Source: patient, RN notes reviewed Mode of arrival: ambulatory Limitations: no limitations - History of Present Illness Initial comments: 31 year old female with no significant past medical history presents to the emergency department with Right lower quadrant pain. She reports she has had a cough for approximately one week however earlier today she coughed and is reporting worsening pain. He reports a history of ovarian cysts Ovarian cysts however this feels different. She is not taking anything for her symptoms. She reports pain only with movement. - Related Data Home Medications Medication Instructions Recorded Confirmed Levothyroxine Sodium [Synthroid] 50 mcg PO DAILY 08/22/21 08/22/21 Allergies Allergy/AdvReac Type Severity Reaction Status Date / Time escitalopram [From Lexapro] AdvReac Rapid Verified 06/22/22 11:35 Heart Rate gluten AdvReac Bloating/Abdominal Verified 06/22/22 11:35 Pain/Nausea Review of Systems ROS Statement: Those systems with pertinent positive or pertinent negative responses have been documented in the HPI. ROS Other: All systems not noted in ROS Statement are negative. Past Medical History Past Medical History: No Reported History, Thyroid Disorder History of Any Multi-Drug Resistant Organisms: None Reported Past Surgical History: Adenoidectomy, Tonsillectomy Additional Past Surgical History / Comment(s): AVIS MAGALLANES Past Psychological History: Anxiety Smoking Status: Never smoker Past Alcohol Use History: Rare Past Drug Use History: None Reported General Exam Limitations: no limitations General appearance: alert, in no apparent distress Head exam: Present: atraumatic, normocephalic, normal inspection Eye exam: Present: normal appearance, PERRL, EOMI. Absent: scleral icterus, conjunctival injection, periorbital swelling ENT exam: Present: normal exam, mucous membranes moist Neck exam: Present: normal inspection. Absent: tenderness, meningismus, lymphadenopathy Respiratory exam: Present: normal lung sounds bilaterally. Absent: respiratory distress, wheezes, rales, rhonchi, stridor Cardiovascular Exam: Present: regular rate, normal rhythm, normal heart sounds. Absent: systolic murmur, diastolic murmur, rubs, gallop, clicks GI/Abdominal exam: Present: soft, normal bowel sounds. Absent: distended, tenderness, guarding, rebound, rigid Extremities exam: Present: normal inspection, full ROM, normal capillary refill. Absent: tenderness, pedal edema, joint swelling, calf tenderness Back exam: Present: normal inspection Neurological exam: Present: alert, oriented X3, CN II-XII intact Psychiatric exam: Present: normal affect, normal mood Skin exam: Present: warm, dry, intact, normal color. Absent: rash Course Vital Signs 06/22/22 06/22/22 11:32 13:14 Temperature 98.3 F 98.4 F Pulse Rate 83 92 Respiratory 18 18 Rate Blood Pressure 112/64 103/68 O2 Sat by Pulse 99 99 Oximetry - Reevaluation(s) Reevaluation #1: 06/22/22 12:18 Patient offered tylenol and she declined. Medical Decision Making - Medical Decision Making Was pt. sent in by a medical professional or institution (, PA, PHARMACIST CRITICAL CARE, urgent care, hospital, or intermediate...) When possible be specific @ -[No] Did you speak to anyone other than the patient for history (EMS, parent, family, police, friend...)? What history was obtained from this source @ -[No] Did you review nursing and triage notes (agree or disagree)? Why? @ -[I reviewed and agree with nursing and triage notes] Were old charts reviewed (outside hosp., previous admission, EMS record, old EKG, old radiological studies, urgent care reports/EKG's, intermediate records)? Report findings @ -[No old charts were reviewed] Differential Diagnosis (chest pain, altered mental status, abdominal pain women, abdominal pain men, vaginal bleeding, weakness, fever, dyspnea, syncope, headache, dizziness, GI bleed, back pain, seizure, CVA, palpatations, mental health, musculoskeletal)? @ -[not applicable] EKG interpreted by me (3pts min.). @ -[As above] X-rays interpreted by me (1pt min.). @ -[None done] CT interpreted by me (1pt min.). @ -[None done] U/S interpreted by me (1pt. min.). @ -[None done] What testing was considered but not performed or refused? (CT, X-rays, U/S, labs)? Why? @ -[None] What meds were considered but not given or refused? Why? @ -[None] Did you discuss the management of the patient with other professionals (professionals i.e. , PA, PHARMACIST CRITICAL CARE, lab, RT, psych nurse, social studies department chair, heel seat filler, teacher, chief contract officer, returned case inspector)? Give summary @ -[No] Was smoking cessation discussed for >3mins.? @ -[No] Was critical care preformed (if so, how long)? @ -[No] Were there social determinants of health that impacted care today? How? (Homelessness, low income, unemployed, alcoholism, drug addiction, transportation, low edu. Level, literacy, decrease access to med. care, halfway, rehab)? @ -[No] Was there de-escalation of care discussed even if they declined (Discuss DNR or withdrawal of care, Hospice)? DNR status @ -[No] What co-morbidities impacted this encounter? (DM, HTN, Smoking, COPD, CAD, Cancer, CVA, ARF, Chemo, Hep., AIDS, mental health diagnosis, sleep apnea, morbid obesity)? @ -[None] Was patient admitted / discharged? Hospital course, mention meds given and route, prescriptions, significant lab abnormalities, going to OR and other pertinent info. @ -Discharged. This is a 31-year-old male who presents to the emergency department with muscle pain. Patient had a thorough history and physical exam performed while in the ED. Heart rate regular rate and rhythm, lungs clear to auscultation bilaterally abdomen is soft and nontender. Patient was offered tylenol however declined. He was given a prescription for prednisone taper. I discussed the results in detail with the patient verbalized understanding, questions and concerns were addressed. The patient was discharged in stable condition. Case discussed with DEYANIRA Sullivan who agrees with plan of care Undiagnosed new problem with uncertain prognosis? @ -[No] Drug Therapy requiring intensive monitoring for toxicity (Heparin, Nitro, Insulin, Cardizem)? @ -[No] Were any procedures done? @ -[No] Diagnosis/symptom? @ -R muscle strain Acute, or Chronic, or Acute on Chronic? @ -acute Uncomplicated (without systemic symptoms) or Complicated (systemic symptoms)? @ -uncomplicated Side effects of treatment? @ -[No] Exacerbation, Progression, or Severe Exacerbation? @ -[No] Poses a threat to life or bodily function? How? (Chest pain, [place], [place], pneumonia, PE, COPD, DKA, ARF, appy, cholecystitis, CVA, Diverticulitis, Homicidal, Suicidal, threat to staff... and all critical care pts) @ low likelihood - Lab Data Lab Results 06/22/22 Range/Units 12:03 Urine HCG, Qual Not Detected (Not Detectd) Disposition Clinical Impression: Muscle strain Disposition: HOME SELF-CARE Condition: Stable Instructions (If sedation given, give patient instructions): Muscle Strain (DC) Additional Instructions: Please return to the nearest emergency department if symptoms worsen or persist Please return to the nearest emergency department if symptoms of fever, chills, nausea, vomiting develops Please rotate between Tylenol and Motrin for pain management. You can apply ice or heat to the area Is patient prescribed a controlled substance at d/c from ED?: No Referrals: Alecia Ace DO [Primary Care Provider] - 1-2 days Time of Disposition: 12:51
[2022-06-22 13:15] VITALS: BP 103/68; PULSE 92; TEMP 98.4
== END 2022-06-22 13:15 | disposition home or self-care (01) ==
LOC: EC 10:50
DX: S39.011A Strain of muscle, fascia and tendon of abdomen, initial encounter (principal); E07.9 Disorder of thyroid, unspecified; Z79.890 Hormone replacement therapy; Z88.8 Allergy status to other drugs, medicaments and biological substances; X58.XXXA Exposure to other specified factors, initial encounter
CPT/HCPCS: 81025; 99284

== ENCOUNTER 2022-07-02 08:04 | Emergency (ER) | payer BC ==
--- NOTE | 2022-07-02 09:18 | XR ---
EXAMINATION TYPE: XR chest 2V DATE OF EXAM: 07/02/2022 COMPARISON: Chest x-ray March 06, 2016 HISTORY: Cough. TECHNIQUE: Frontal and lateral views of the chest are obtained. FINDINGS: There is no suspicious peripheral focal air space opacity, pleural effusion, or pneumothor ax seen. The cardiac silhouette size is stable and within normal limits. The osseous structures ar e intact. IMPRESSION: No suspicious acute air space opacity is seen.
--- NOTE | 2022-07-02 09:29 | ED ---
URI HPI - General Chief Complaint: Upper Respiratory Infection Stated Complaint: Cough Time Seen by Provider: 07/02/22 08:14 Source: patient, RN notes reviewed Mode of arrival: ambulatory Limitations: no limitations - History of Present Illness Initial Comments: 31-year-old female presents emergency Department with chief complaint of cough and cold-like symptoms. Patient states she had an upper respiratory infection that was getting better but states that she her get sick and she states she has new symptoms now. Patient states been coughing feels like she has congestion in her chest states that her ribs hurt. Patient denies any shortness of breath at rest no exertional symptoms. Patient denies any rash she states she still has sinus congestion she has not taken any [id number] cough and cold medications. No abdominal pain no leg pain or leg swelling. - Related Data Home Medications Medication Instructions Recorded Confirmed Levothyroxine Sodium [Synthroid] 50 mcg PO DAILY 08/22/21 08/22/21 Previous Rx's Medication Instructions Recorded Benzonatate [Tessalon Perle] 200 mg PO TID PRN #20 cap 07/02/22 predniSONE 50 mg PO DAILY #5 tab 07/02/22 Allergies Allergy/AdvReac Type Severity Reaction Status Date / Time escitalopram [From Lexapro] AdvReac Rapid Verified 07/02/22 08:05 Heart Rate gluten AdvReac Bloating/Abdominal Verified 07/02/22 08:05 Pain/Nausea Review of Systems ROS Statement: Those systems with pertinent positive or pertinent negative responses have been documented in the HPI. ROS Other: All systems not noted in ROS Statement are negative. Past Medical History Past Medical History: No Reported History, Thyroid Disorder History of Any Multi-Drug Resistant Organisms: None Reported Past Surgical History: Adenoidectomy, Tonsillectomy Additional Past Surgical History / Comment(s): D AND Daniella, AVIS Past Psychological History: Anxiety Smoking Status: Never smoker Past Alcohol Use History: Rare Past Drug Use History: None Reported General Exam Limitations: no limitations General appearance: alert, in no apparent distress Head exam: Present: atraumatic, normocephalic, normal inspection Eye exam: Present: normal appearance, PERRL, EOMI. Absent: scleral icterus, conjunctival injection, periorbital swelling ENT exam: Present: normal exam, normal oropharynx, mucous membranes moist Neck exam: Present: normal inspection, full ROM. Absent: tenderness, meningismus, lymphadenopathy Respiratory exam: Present: normal lung sounds bilaterally, chest wall tenderness. Absent: respiratory distress, wheezes, rales, rhonchi, stridor Cardiovascular Exam: Present: regular rate, normal rhythm, normal heart sounds. Absent: systolic murmur, diastolic murmur, rubs, gallop, clicks GI/Abdominal exam: Present: soft, normal bowel sounds. Absent: distended, tenderness, guarding, rebound, rigid Neurological exam: Present: alert Skin exam: Present: warm, dry, intact, normal color. Absent: rash Course Vital Signs 07/02/22 07/02/22 08:05 09:34 Temperature 98 F 98.1 F Pulse Rate 94 86 Respiratory 16 18 Rate Blood Pressure 107/75 104/63 O2 Sat by Pulse 98 98 Oximetry Medical Decision Making - Medical Decision Making Was pt. sent in by a medical professional or institution (, PA, VAMP PRESSER, urgent care, hospital, or fci...) When possible be specific @ -No Did you speak to anyone other than the patient for history (EMS, parent, family, police, friend...)? What history was obtained from this source @ -No Did you review nursing and triage notes (agree or disagree)? Why? @ -I reviewed and agree with nursing and triage notes Were old charts reviewed (outside hosp., previous admission, EMS record, old EKG, old radiological studies, urgent care reports/EKG's, fci records)? Report findings @ -Prior charting, studies were reviewed Differential Diagnosis (chest pain, altered mental status, abdominal pain women, abdominal pain men, vaginal bleeding, weakness, fever, dyspnea, syncope, headache, dizziness, GI bleed, back pain, seizure, CVA, palpatations, mental health, musculoskeletal)? @ -Chest wall pain, upper respiratory infection, acute bronchitis, pneumonia, EKG interpreted by me (3pts min.). @ -None X-rays interpreted by me (1pt min.). @ -Chest x-rays unremarkable CT interpreted by me (1pt min.). @ -None done U/S interpreted by me (1pt. min.). @ -None done What testing was considered but not performed or refused? (CT, X-rays, U/S, labs)? Why? @ -None What meds were considered but not given or refused? Why? @ -None Did you discuss the management of the patient with other professionals (professionals i.e. , PA, VAMP PRESSER, lab, RT, psych nurse, clinical social worker, mineral economist, teacher, strategic debriefing officer, immigration case worker)? Give summary @ -No Was smoking cessation discussed for >3mins.? @ -No Was critical care preformed (if so, how long)? @ -No Were there social determinants of health that impacted care today? How? (Homelessness, low income, unemployed, alcoholism, drug addiction, transportation, low edu. Level, literacy, decrease access to med. care, senior care, rehab)? @ -No Was there de-escalation of care discussed even if they declined (Discuss DNR or withdrawal of care, Hospice)? DNR status @ -No What co-morbidities impacted this encounter? (DM, HTN, Smoking, COPD, CAD, Cancer, CVA, ARF, Chemo, Hep., AIDS, mental health diagnosis, sleep apnea, morbid obesity)? @ -None Was patient admitted / discharged? Hospital course, mention meds given and route, prescriptions, significant lab abnormalities, going to OR and other pertinent info. @ -Discharge patient has acute bronchitis does have notable wheezing chest wall pain. Patient started on steroids, Tessalon Perles return parameters were dis cussed. Undiagnosed new problem with uncertain prognosis? @ -No Drug Therapy requiring intensive monitoring for toxicity (Heparin, Nitro, Insul in, Cardizem)? @ -No Were any procedures done? @ -No Diagnosis/symptom? @ -Acute bronchitis, chest wall pain Acute, or Chronic, or Acute on Chronic? @ -Acute Uncomplicated (without systemic symptoms) or Complicated (systemic symptoms)? @ -Uncomplicated Side effects of treatment? @ -No Exacerbation, Progression, or Severe Exacerbation? @ -No Poses a threat to life or bodily function? How? (Chest pain, [place], [place], pneumonia, PE, COPD, DKA, ARF, appy, cholecystitis, CVA, Diverticulitis, Homicidal, Suicidal, threat to staff... and all critical care pts) @ -No Disposition Clinical Impression: Acute bronchitis, Costochondral pain Disposition: HOME SELF-CARE Condition: Stable Instructions (If sedation given, give patient instructions): Costochondritis (ED), Acute Bronchitis (ED) Additional Instructions: Please return to the Emergency Department if symptoms worsen or any other concerns. Prescriptions: predniSONE 50 mg PO DAILY #5 tab Benzonatate [Tessalon Perle] 200 mg PO TID PRN #20 cap PRN Reason: Cough Is patient prescribed a controlled substance at d/c from ED?: No Referrals: Alecia Ace DO [Primary Care Provider] - 1-2 days Time of Disposition: 09:29
[2022-07-02 09:36] VITALS: BP 104/63; PULSE 86; RESP 18; TEMP 98.1
== END 2022-07-02 09:42 | disposition home or self-care (01) ==
LOC: EC 08:04
DX: J20.9 Acute bronchitis, unspecified (principal); R07.1 Chest pain on breathing; E07.9 Disorder of thyroid, unspecified; Z79.890 Hormone replacement therapy; Z88.8 Allergy status to other drugs, medicaments and biological substances; Z91.018 Allergy to other foods
CPT/HCPCS: 71046; 99283

== ENCOUNTER → 2022-07-24 | Outpatient (CLI) | payer BC ==
--- NOTE | 2022-07-24 08:01 | MM ---
Reason for Exam: Clinical finding. Last mammogram was performed 5 year(s) and 0 month(s) ago. Patient History: Menarche at age 13. First Full-Term at age 19. Paternal grandmother had breast cancer, age 60. Last menstrual period: 07/22/2022 Prior Study Comparison: 07/16/2017 Bilateral Diagnostic Mammogram, [facility]. 10/01/2018 Left Diagnostic Mammogram, [facility]. Tissue Density: Left: The breast tissue is extremely dense which could obscure a lesion on mammography. Findings: Analyzed By CAD. There are a few benign-appearing punctate calcifications in the left breast. Triangular marker at the palpable abnormality inferiorly in the left breast. No obvious new mass or distortion left breast. Overall Assessment: Incomplete: need additional imaging evaluation, BI-RAD 0 Management: Diagnostic Breast Ultrasound of the left breast. Targeted ultrasound palpable abnormality left breast. Electronically signed and approved by: Casa Collier M.D.
--- NOTE | 2022-07-24 08:45 | USB ---
Reason for Exam: Clinical finding. Patient History: Menarche at age 13. First Full-Term at age 19. Paternal grandmother had breast cancer, age 60. Technique: Method: Targeted. Prior Study Comparison: 07/16/2017 Bilateral Diagnostic Mammogram, [facility]. 10/01/2018 Left Diagnostic Mammogram, [facility]. Findings: The area of palpable concern of the left breast, the axilla of the left breast and the retroareolar of the left breast were scanned. Targeted ultrasound shows a slightly irregular thin-walled cyst measuring 2.0 x 1.0 x 2.1 cm a palpable abnormality 6:00 position 5 cm distance from nipple with slightly lobulated margin. Overall Assessment: Benign, BI-RAD 2 Management: Screening Mammogram of both breasts at age 38. Benign simple cyst at palpable abnormality. No further imaging necessary unless lesion is thought to become larger or painful. Results were given to the patient verbally at the time of exam. Electronically signed and approved by: Casa Collier M.D.
== END | disposition home or self-care (01) ==
LOC: RADMAMWWP 07:26
PROVIDERS: ATTEND Family Medicine
DX: R92.1 Mammographic calcification found on diagnostic imaging of breast (principal); N63.20 Unspecified lump in the left breast, unspecified quadrant; Z80.3 Family history of malignant neoplasm of breast
CPT/HCPCS: 77061; 77065